=== PATIENT | female | born 2005 | race Caucasian/White ===

== ENCOUNTER 2025-04-19 09:04 | Emergency (ER) | payer OTHER, SELFPAY ==
[2025-04-19] VITALS (14 sets, daily range): BP systolic 117–123; BP diastolic 75–82; PULSE 58–94; RESP 18; TEMP 36.6; O2SAT 97–99; BMI 23.7
--- NOTE | 2025-04-19 09:12 | ED_ITS ---
HPI - General Adult General Date Seen: 04/19/25 Chief complaint: Abdominal Pain Stated complaint: chest and stomache pains Time Seen by Provider: 04/19/25 09:12 History of Present Illness HPI narrative: This is a 19-year-old female who is generally healthy. She has a [employer] student. She presents to the ER for pain in her epigastrium and lower chest. She is generally healthy. No history of asthma, heart disease, PE. She is not on any medications. She has a tall, slender body habitus but no known family history of Marfan's disease, and no family history of sudden cardiac . Because she was tall, she recalls that a couple of years ago her doctor (in her hometown [facility]) did an echocardiogram to check out her aortic valve and she says it was normal. She is not on any regular medications. She has had symptoms of a sore throat and cough for the past few days but no fever. She thinks that her symptoms are just ?a cold. ? She is feeling normal yesterday. Normal appetite. She is currently on her menstrual cycle and is hav ing some mild, lower abdominal cramping which is typical for her. . Yesterday afternoon she was having relax afternoon with her friends and roommate. They were watching a movie. She was not eating but she had had lunch a few hours prior to onset. During the movie she started having feeling of some pressure in her epigastrium that then radiated up into her central chest. It started mild and crescendoed and got worse. It did not radiate through to her back. She can not really describe it. She thought she might be having heartburn, but did not really have burning. She was mildly nauseous. No palpitations. No heart racing. She called her family and her mother had her check her pulse, which is regular. She was not short of breath. No pleuritic component to the pain. She did start to feel anxious because of the pain but does not really think it was anxiety or panic that caused the pain. That episode resolved after 10 or 15 minutes. She had a 2nd episode later on yesterday evening, a few hours after dinner. It again started in the epigastrium and radiated up into her chest. It came and went similarly to her 1st episode she did have a 2 cider alcoholic beverages last night but they occurred after her 2nd episode. She was able to sleep well last night. This morning, when she woke up she had another episode of pain located in her epigastrium and up into her lower chest. This morning's episode was more intense. It was similar in onset, location, character, and symptoms to yesterday but was more intense. This morning's episode has now resolved and she arrives here in the ER she is symptom free. In discussing her alcohol consumption she does say she had had 2 side or beverages last night but not drink every day. She has not had any alcohol in the past couple of weeks since she arrived back on campus. She was drinking occasionally over the summer. She did not have any previous episodes of pain recently or over the summer. Related Data Home Medications ?Medication ?Instructions ?Recorded ?Confirmed No Known Home Medications 04/19/2504/01 Allergies Allergy/AdvReac Type Severity Reaction Status Date / Time No Known Drug Allergies Allergy Verified 04/19/25 09:13 [facility] Social History Smoking Status: Never smoker How often do you have a drink containing alcohol: never How often do you have six or more drinks on one occasion: Never AUDIT-C Alcohol total score: 0 Non-prescribed substance use: denies use service: No Exam Narrative: Exam Narrative: Constitutional: Appears well-developed and well-nourished. Alert. Conversant. Non toxic. Polite. HENT: Head: Atraumatic. Nose: Mild clear rhinorrhea. Occasional sniffling Mouth/Throat: Oral mucosa is clear and moist. no trismus. Pharynx normal. Tonsils symmetric. No tonsillar enlargement, erythema, or exudate. Eyes: Conjunctivae normal. EOM normal. Pupils equal, round, and reactive to light. No scleral icterus. Neck: Normal range of motion. Neck supple. No tracheal deviation present. No JVD Cardiovascular: Normal rate, regular rhythm. No gallop. No friction rub. No murmur heard. Symmetric radial and PT artery pulses Pulmonary/Chest: Effort normal. No stridor. No respiratory distress. No wheezes. No rales. No rhonchi . No tenderness. Abdominal: Soft. Bowel sounds normal. No distension. No mass. Mild epigastric tenderness. No rebound. No guarding. Musculoskeletal: RUE: Normal range of motion. No tenderness. No deformity LUE: Normal range of motion. No tenderness. No deformity RLE: Normal range of motion. No edema. No tenderness. No deformity LLE: Normal range of motion. No edema. No tenderness. No deformity Neurological: Alert and oriented to person, place, and time. Normal strength. CN II-VII intact. No sensory deficit. GCS eye subscore is 4. GCS verbal subscore is 5. GCS motor subscore is 6. Normal coordination Skin: Skin is warm and dry. No rash noted. No pallor. Normal capillary refill. Psychiatric: Normal mood. Normal affect. Const: Vital Signs, click to edit/add: Vital Signs - 24 hr 04/19/25 09:08 04/19/25 09:14 04/19/25 13:27 Temperature 97.8 F Pulse Rate 71 Pulse Rate [Right Pulse Oximeter] 94 Respiratory Rate 18 Blood Pressure 122/82 Blood Pressure [Ri ght Upper Arm] 123/76 Pulse Oximetry 98 99 Oxygen Delivery Me thod Room Air 04/19/25 13:28 04/19/25 13:30 04/19/25 13:45 Temperature Pulse Rate 67 63 60 Pulse Rate [Right Pulse Oximeter] Respiratory Rate Blood Pressure Blood Pressure [Ri ght Upper Arm] Pulse Oximetry 98 98 97 Oxygen Delivery Me thod 04/19/25 14:00 04/19/25 14:01 04/19/25 14:15 Temperature Pulse Rate 60 67 58 L Pulse Rate [Right Pulse Oximeter] Respiratory Rate Blood Pressure 122/75 Blood Pressure [Ri ght Upper Arm] Pulse Oximetry 99 99 99 Oxygen Delivery Me thod 04/19/25 14:30 04/19/25 14:45 04/19/25 15:01 Temperature Pulse Rate 70 61 64 Pulse Rate [Right Pulse Oximeter] Respiratory Rate Blood Pressure 117/75 Blood Pressure [Ri ght Upper Arm] Pulse Oximetry 98 99 97 Oxygen Delivery Me thod 04/19/25 15:02 04/19/25 15:15 Temperature Pulse Rate 61 70 Pulse Rate [Right Pulse Oximeter] Respiratory Rate Blood Pressure Blood Pressure [Ri ght Upper Arm] Pulse Oximetry 99 97 Oxygen Delivery Me thod Course Vital Signs Vital signs: Initial Vital Signs Pulse Rate 94 04/19/25 09:08 Pulse Rhythm Regular 04/19/25 09:08 Pulse Strength 3+ Normal 09/20/25 09:08 Respiratory Rate 18 04/19/25 09:08 Blood Pressure 123/76 04/19/25 09:08 Blood Pressure Mean 91 04/19/25 09:08 Blood Pressure Position Sitting 04/19/25 09:08 Pulse Oximetry 98 04/19/25 09:08 Oxygen Delivery Method Room Air 04/19/25 09:08 Vital Signs Pulse Rate 94 04/19/25 09:08 Respiratory Rate 18 04/19/25 09:08 Blood Pressure 123/76 04/19/25 09:08 Pulse Oximetry 98 04/19/25 09:08 Oxygen Delivery Method Room Air 04/19/25 09:08 Temperature 97.8 F 04/19/25 09:14 Pulse Rate 70 04/19/25 15:15 Respiratory Rate 18 04/19/25 09:08 Blood Pressure 117/75 04/19/25 15:01 Pulse Oximetry 97 04/19/25 15:15 Oxygen Delivery Method Room Air 04/19/25 09:08 Medical Decision Making MDM Narrative Medical decision making narrative: This patient presents to the ER today for evaluation of upper epigastric and lower chest pain, occurring in several episodes beginning yesterday afternoon. Differential was broad. No evidence of palpitations, syncope or other cardiac dysrhythmia. We considered possible ACS, however workup with EKG and troponin is negative. HEART score is 0. Given time since onset of symptoms, I do not think the patient needs to be admitted for further sets of enzymes. EKG shows no evidence for pericarditis. Clinical presentation not suggestive of myocarditis. Chest x-ray shows no evidence for pneumonia, pneumothorax, pulmonary edema, pleural effusion, rib fracture, cardiomegaly. Mediastinum is normal on the x-ray. The patient has no ripping or tearing pain through to the back and has symmetric pulses on exam, no other acute neuro findings so I doubt aortic dissection. D-dimer is normal. She is low risk by aortic dissection wrists or. Risk of radiation and contrast exposure would outweigh the benefit of CT angiogram. We considered PE for this patient. She is overall low risk. Screening D-dimer is normal. No wheezing or bronchospasm to suggest COPD/asthma. No signs of chest wall cellulitis, shingles, injury. Consider GI causes of epigastric/lower chest pain. Consider gastritis or peptic ulcer disease. With the patient's epigastric tenderness we did check labs. LFTs were mildly abnormal and subsequently lipase came back markedly elevated at almost 17,000. It looks like she has acute pancreatitis. Gallbladder ultrasound obtained shows no evidence for gallstones and a normal common bile duct diameter. I reassessed the patient's alcohol consumption and she in her room a confirm that she did have 2 beverages last night (after her pains and already occurred) but has not had any other alcohol over the past several weeks. Blood sugar is normal. She does not have any acute kidney injury. Anion gap is normal. White count is mildly elevated 11.1 which is probably due to systemic inflammatory reaction from her pancreatitis. Cause of the pancreatitis unclear. She denies any habitual alcohol use but did have 2 alcoholic beverages last night (actually after her pain already started). Gallbladder ultrasound is negative for any gallstones, dilatation of the pancreatic ducts. CT scan of her abdomen pelvis shows no clear anatomic abnormality of the pancreas such as a tumor or pseudocyst. Interestingly the CT scan does not show radiographic findings of acute pancreatitis. However labs are highly suggestive. Triglyceride level is normal. Discussed with our hospitalist, Dr. Dominguez. Since the patient is doing well and having almost no pain and no nausea vomiting he feels that she does not require hospitalization. He would recommend discharge home with outpatient follow-up. I did reach out to speak with GI. I was able to get it consult over the phone with Dr. Julio who is covering call for [facility]. Discussed the patient's presenting symptoms and findings of pancreatitis without a clear cause. He would recommend that supportive care during the initial phase is indicated and after that she would need follow-up with the pancreas team through . He would recommend that when the patient is ready to go home from the hospital that she call the [facility] may number and ask for a follow-up visit with Dr. Saucedo If the patient is not able to get in with [facility] for close recheck would recommend that she follow up with [facility] or failing that, with [facility] for recheck by Monday or Monday at the latest. With reasonable clinical confidence, I think the patient is safe for outpatient follow up. Discussed return precautions. Questions answered. Patient and father voiced comfort with the plan. Lab Data Labs: Lab Results 04/19/25 04/19/25 Range/Units 09:45 14:16 WBC 11.11 H (4.50-11.00) K/uL RBC 4.61 (4.00-5.20) m/uL Hgb 12.8 (12.0-16.0) gm/dL Hct 38.8 (33.0-51.0) % MCV 84 (80-100) fL MCH 28 (26-34) pg MCHC 33 (32-36) gm/dL RDW Coeff of Marilia 11.8 (11.5-15.5) % Plt Count 283 (140-440) K/uL Neut % (Auto) 83.0 H (42.0-72.0) % Lymph % (Auto) 9.9 L (20-44) % Hendricks % (Auto) 6.4 (0.0-11.0) % Eos % (Auto) 0.3 (0.0-7.0) % Baso % (Auto) 0.3 (0.0-3.0) % Neut # (Auto) 9.20 H (1.7-7.0) K/uL Lymph # (Auto) 1.10 (0.90-2.90) K/uL Hendricks # (Auto) 0.70 (0.00-0.90) K/UL Eos # (Auto) 0.00 (0.00-0.50) K/uL Baso # (Auto) 0.00 (0.00-0.30) K/uL Abs Immat Gran (auto) 0.00 (0.00-0.30) K/uL Imm/Tot Granulo (auto) 0.1 % D-Dimer Quant (PE/DVT) 0.37 (0.00-0.50) ug/ml Sodium 137 (135-149) mmol/L Potassium 3.5 L (3.6-5.1) mmol/L Chloride 103 (96-114) mmol/L Carbon Dioxide 26 (20-32) mmol/L Anion Gap 8 (7-15) mEq/L BUN 6 (5-24) mg/dL Creatinine 0.5 (0.5-1.5) mg/dL Estimated Creat Clear 207.12 Estimated GFR 138 ml/min Glucose 103 (60-115) mg/dL Calcium 8.8 (8.4-10.6) mg/dL Total Bilirubin 0.6 (0.1-1.5) mg/dL AST 144 H (12-35) U/L ALT 69 H (4-35) U/L Alkaline Phosphatase 84 (40-150) U/L Troponin I < 0.01 (0.01-0.04) ng/mL Total Protein 6.7 (6.0-8.3) g/dL Albumin 4.1 (3.3-5.0) g/dL Triglycerides 51 (40-149) mg/dL Lipase 70108 H (23-300) U/L HCG, Qual Negative (Negative) Imaging Data Chest x-ray: Attestation: I have reviewed the pertinent imaging results. My impression: No acute infiltrate. Normal cardiac silhouette. No pneumothorax. CT scan - abdomen: Attestation: I have reviewed the pertinent imaging results. Radiologist's impression: IMPRESSION: No imaging findings of acute pancreatitis. Pancreatitis may nevertheless be present if the patient`s symptoms are in keeping with acute pancreatitis and serum amylase/lipase is greater than 3 times upper limit of normal. Consider follow-up imaging (e.g. 1 week) if the patient`s clinical condition fails to improve or deteriorates. Pancreatic necrosis can be underestimated if imaging is performed within 3-5 days of symptom onset and complications related to acute pancreatitis typically develop one-week or later. ECG Data Attestation: I personally reviewed and interpreted this ECG as follows: Interpretation: Normal sinus rhythm Rate 80 CT interval 150. No delta waves. Normal QRS axis. No pathologic Q-waves. No ST segment elevation or depression. Nonspecific T-wave inversions in lead V1, V3. T-wave flattening in V2. QT 394, QTC 454 Discharge Plan Discharge Clinical Impression: Pancreatitis Patient Disposition: Home, Self-Care Condition: Stable Instructions: Pancreatitis (ED) Additional Instructions: As we discussed, please return to the ER right away if you have any worsening symptoms such as worsening abdominal pain or chest pain, nausea vomiting, fever, lightheadedness, or weakness, or if you have any other problems. Avoid alcohol consumption. It is okay to eat a regular diet. Start eating with foods that are low in fat. As you get better EKG return to your full normal diet. It is very important for you to have a checkup with follow-up lab testing by Monday or Monday. I have made contact with [facility], Dr. Julio. He would like to have you follow-up in the [facility]. Call [phone] on Monday morning to arrange an ER follow-up visit. If possible he wants you to get an appointment with the pancreas team, Dr. Saucedo. If you are unable to get into [facility] for a recheck on Monday or Monday, please call the [facility] arrange an ER follow-up checkup here in [place]. If you are not able to get into either of these clinics, return to the ER on Monday for re-evaluation. Prescriptions: No Action No Known Home Medications Follow Up/Referrals: Provider,Not a Local [Primary Care Provider, Family Practice] Stand Alone Forms: [employer] Info Instructions
--- NOTE | 2025-04-19 09:41 | CRLHL7_ITS ---
For Patients: As a result of the Century Cures Act, medical imaging exams and procedure reports are released immediately into your electronic medical record. You may view this report before your referring provider. If you have questions, please contact your health care provider. INDICATION: Chest pain. TECHNIQUE: Chest 2 views. COMPARISON: None. FINDINGS/ IMPRESSION: No focal consolidation, effusion or pneumothorax. Cardiac size is within normal limit without pulmonary edema. No acute osseous abnormality. Dictated by Luis E Holden MD @ 04/19/2025 10:30:22 AM (Electronically Signed)
[2025-04-19 09:59] LABS: Hematocrit* 38.8 % (33.0-51.0); Hemoglobin* 12.8 gm/dL (12.0-16.0); Immature Granulocytes Abs Auto 0.00 K/uL (0.00-0.30); Immature Granulocytes Pct Auto 0.1 %; Lymphocytes Absolute Auto 1.10 K/uL (0.90-2.90); Mean Corpuscular HGB Conc 33 gm/dL (32-36); Mean Corpuscular Hemoglobin 28 pg (26-34); Mean Corpuscular Volume 84 fL (80-100); RDW Coefficient of Variation % 11.8 % (11.5-15.5); Red Blood Count* 4.61 m/uL (4.00-5.20); Slide Review Reflex No; White Blood Count* 11.11 K/uL (4.50-11.00)
--- OUTSIDE RECORDS SUMMARY | 2025-04-19 10:06 | XMS_ITS | Clinical Summary ---
Author Organization [facility] Address [address] [address] Phone Care Team Providers Care Sap Portal Consultant Name Role Phone Marcin Colby MD Primary Care Provider [phone] Allergies No known active allergies Medications clindamycin (Clindagel) 1 % gel Apply topically two times a day. 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 Immunizations Immunization Administration Dates Next Due COVID-19 MRNA Vaccine (Pfize r Bivalent TRI-SUCR) Salcedo 12+ YRS 05/14/2022 COVID-19 MRNA Vaccine (Pfize r JUSTIN-SUCR) Salcedo 12+ Yrs Seasonal 07/29/2024,06/23/2023 COVID-19 Vaccine: Pfizer Dos e 1 (Purple- 12+ Yrs) [facility] 10/29/2020 COVID-19 Vaccine: Pfizer Dos e 2 (Purple- 12+ Yrs) [facility] 11/19/2020 COVID-19 mRNA Vaccine (Pfize r-Purple 12+ Yrs) 08/06/2021 DTaP <7 years 09/27/2010,04/18/2006 [id number] (Pediarix) 04/07/2005,12/30,2004,10/2903/21/2005 Hepatitis A, Ped/Adolescent 2 dose 03/09/2018, Hib PRP OMP (PedvaxHib) 12/29/2005,01/18,2004,10/2903/21/2005 Human Papilloma Virus 9 04/08/2022,03/09/2018 IPV 06/09/2011 Influenza (6+ Months) Quad NPF Vial 05/29/2015 Influenza Live Intranasal Qu ad (Flumist) 07/30/2008 Influenza Quad Preservative Free 023,05/14/2022,05/15/2021,08/01,06/11/2019 Influenza Quad Split 06/11/2019,06/14/20 18,06/14/2016,05/02 Influenza Trivalent Live Int ranasal (Flumist) 07/30/2008 Influenza Trivalent Preservative Free 07/29/2024 ,06/12/2014 Influenza Trivalent With Preservative 06/13/2017 MMR 01/04/2010,09/22/2005 Meningococcal MCV4 (Menveo) 2 Vials 04/08/2022 Pneumococcal Conjugate, (Prevnar)7-valent 04/18/2006,04/07/2005,01/18/2005,10/30,2004 Tdap (7 years and older) 03/21/2016 Varicella (Varivax) 01/04/2010,12/29/2005 meningococcal MCV4P (Menactra) 03/21/2016 Social History Tobacco Use Types Packs/Day Years Used Date Smoking Tobacco: Never Passive Smoke Exposure: Never Smokeless Tobacco: Never Tobacco Cessation:Counseling Given: Not Answered Alcohol Use Standard Drinks/Week Comments Not Asked 0 (1 standard drink = 0.6 oz pur e alcohol) Overall Financial Resource Strain (CARDIA) Answe r Date Recorded How hard is it for you to pa y for the very basics like food, housing, medical care, and heating? Not hard at all 03/12/2020 PHQ-2 Answer Date Recorded PHQ-2 Total 0 03/12/2020 Hunger Vital Sign Answer Date Recorded Within the past 12 months, y ou worried that your food would run out before you got the money to buy more. Never true 03/12/20 20 Within the past 12 months, t he food you bought just didn't last and you didn't have money to get more. Never true 03/12/2020 PRAPARE - Transportation Answer Date Re corded In the past 12 months, has l ack of transportation kept you from medical appointments or from getting medications? No 02/28 In the past 12 months, has l ack of transportation kept you from meetings, work, or from getting things needed for daily living? No 03/12/2020 Comments No Sex and Gender Information Value Date Recorded Sex Assigned at Female 01/07/2022 3:29 PM CDT Legal Sex Female 12:12 AM [employer] AGENT Gender Identity Female 01/07/2022 3:29 PM CDT Sexual Orientation Not on file History Length Weight Head Circum Date/Time Gestation Age D/C Weight APGARs Delivery Method Feeding 21 (53.3 cm) 9 lb (4.082 kg) 2004 40 wks 8 lb 9 oz Not Asked Obstetrics History Last Filed Vital Signs Vital Sign Reading Time Taken Comments Blood Pressure 102/68 01/11/2023 8:38 AM CDT Pulse 90 01/11/2023 8:38 AM CDT Temperature 36.3 C (97.3 F) 01/11/2023 8:38 AM CDT Respiratory Rate 10 01/11/2023 8:38 AM CDT Oxygen Saturation 99% 01/11/2023 8:38 AM CDT Inhaled Oxygen Concentration - - Weight 75.2 kg (165 lb 12.6 oz) 01/11/2023 8:38 AM CDT Height 180.3 cm (5' 11) 01/11/2023 8:38 AM CDT Body Mass Index 23.12 01/11/2023 8:38 AM CDT Plan of Treatment Health Maintenance Due Date Last Done Comments Chlamydia Screening 2020 Meningococcal B Vaccine (Standing Order) (1 of 2 - Standard) 2020 ADULT COMPLETE PHYSICAL AGE 19-21 YRS 2023 Influenza Vaccine Seasonal (Standing Order) (#1) 2025 07/29/2024, 06/23/2023, 05/14/2022, Additional history exists TETANUS (Standing Order) 03/21/2026 016, 09/27/2010, 04/18/2006, Additional history exists Hepatitis B Vaccine (Standing Order) Completed 04/07/2005, 01/18/2005, 2004, Additional history exists Pneumococcal/PCV20 Vaccine: Pediatrics (2-5 yrs) and At-Risk Patients (6-49 yrs) (Standing Order) Aged Out 04/18/2006, 04/07/2005, 01/18/2005, Additional history exists No longer eligible based on patient's age to complete this topic PERTUSSIS (Standing Order) Completed 03/21, 09/27/2010, 04/18/2006, Additional history exists HPV Vaccine (Standing Order) Completed 04/08/2022, 03/09/2018 Insurance [employer] [facility] [place] [address] [facility] * Guarantor: COVID-19 IMMUNIZATION Account Type Relation to Patient Date of Phone Billing Address Company Other [address] [place] [address] * Guarantor: [employer] Account Type Relation to Patient Date of Phone Billing Address Company Other [address] [place] [id number] Advance Directives For more information, please contact: [phone] * No Code Status (Latest Code Status on File) Date Activated Date Inactivated Comments 2004 11:42 AM 2004 11:42 AM Care Teams Sap Portal Consultant Relationship Specialty Start Date End Date Marcin Colby MD [address] [place] [address] [place] [address] PCP - General Family Medicine 01/04/10
[2025-04-19 10:10] LABS: Albumin* 4.1 g/dL (3.3-5.0); Chloride* 103 mmol/L (96-114); Potassium* 3.5 mmol/L (3.6-5.1); Sodium* 137 mmol/L (135-149)
[2025-04-19 10:13] LABS: Alanine Aminotransferase* 69 U/L (4-35); Alkaline Phosphatase* 84 U/L (40-150); Anion Gap 8 mEq/L (7-15); Aspartate Amino Transferase* 144 U/L (12-35); Bilirubin Total* 0.6 mg/dL (0.1-1.5); Blood Urea Nitrogen* 6 mg/dL (5-24); Calcium* 8.8 mg/dL (8.4-10.6); Carbon Dioxide* 26 mmol/L (20-32); Creatinine* 0.5 mg/dL (0.5-1.5); Est. Creatinine Clearance* 207.12; Estimated Glomerular Filt Rate 138 ml/min; Glucose* 103 mg/dL (60-115); Total Protein* 6.7 g/dL (6.0-8.3)
[2025-04-19 10:14] LABS: D Dimer Quantitative* 0.37 ug/ml (0.00-0.50)
[2025-04-19 10:15] LABS: HCG Qualitative Serum* Negative (Negative)
--- NOTE | 2025-04-19 10:26 | CRLHL7_ITS ---
For Patients: As a result of the Century Cures Act, medical imaging exams and procedure reports are released immediately into your electronic medical record. You may view this report before your referring provider. If you have questions, please contact your health care provider. INDICATION: EPIGASTRIC AND LOW CHEST PAIN, ELEVATED LFTS. (Sic) COMPARISON: None available. TECHNIQUE: Limited sonographic examination of the gallbladder and CBD. FINDINGS: Gallbladder: Nondistended. Free of stones or significant sludge. Normal wall thickness. Negative sonographic Silva sign. CBD: 5mm Peritoneal Cavity: No significant ascites. Additional Findings: None. IMPRESSION: No findings to explain the clinical history. Dictated by Jose Enrique Liao MD @ 04/19/2025 12:09:09 PM (Electronically Signed)
--- NOTE | 2025-04-19 12:28 | CRLHL7_ITS ---
For Patients: As a result of the 21st Century Cures Act, medical imaging exams and procedure reports are released immediately into your electronic medical record. You may view this report before your referring provider. If you have questions, please contact your health care provider. INDICATION: Epigastric pain, elevated lipase. (Sic) COMPARISON: None available. TECHNIQUE: CT of the abdomen and pelvis with 85 cc of Isovue 370 intravenous contrast. Please note that all CT scans at this facility use dose modulation, iterative reconstruction, and/or weight-based dosing when appropriate to reduce radiation dose to as low as reasonably achievable. FINDINGS: ABDOMEN Liver: Normal contour and attenuation. No significant focal lesion. No intrahepatic biliary ductal dilatation. Patent portal veins. Patent hepatic veins. Gallbladder: Normal size. No pericholecystic inflammatory changes. Normal common duct caliber. Pancreas: Normal contour and attenuation. No peripancreatic inflammatory changes. No significant focal lesion. Normal main duct caliber. Spleen: Not enlarged. No significant focal lesion. Patent splenic artery and vein. Adrenal Glands: Symmetrical adrenal glands. No significant focal lesion. Kidneys: Normal bilateral renal attenuation. No significant focal lesion. No nephrolith. No dilatation of the intrarenal collecting systems. No ureteral stone. Nondilated ureters. Patent renal arteries and veins. Gastrointestinal tract: Normal caliber, attenuation and wall thickness of the gastrointestinal tract. No inflammatory changes. Normal small bowel mesentery. Normal appendix. Vascular: Abdominal aorta and its major proximal branches including the celiac, superior mesenteric, inferior mesenteric, renal, and bilateral common iliac arteries are patent. Patent superior mesenteric vein. Peritoneal Cavity/Retroperitoneum: No ascites. No adenopathy. PELVIS No bladder lesion is identified. No significant incidental findings related to the uterus or uterine adnexa. Small volume low-attenuation pelvic free fluid is within physiologic limits of normal.. No adenopathy. SKELETON AND BODY WALL No acute or significant incidental findings. LOWER THORAX Partially included lower thoracic wall, lungs, pleural spaces and mediastinum are without significant incidental findings. IMPRESSION: No imaging findings of acute pancreatitis. Pancreatitis may nevertheless be present if the patient`s symptoms are in keeping with acute pancreatitis and serum amylase/lipase is greater than 3 times upper limit of normal. Consider follow-up imaging (e.g. 1 week) if the patient`s clinical condition fails to improve or deteriorates. Pancreatic necrosis can be underestimated if imaging is performed within 3-5 days of symptom onset and complications related to acute pancreatitis typically develop one-week or later. Please note that all CT scans at this facility use dose modulation, iterative reconstruction, and/or weight-based dosing when appropriate to reduce radiation dose to as low as reasonably achievable. Dictated by Jose Enrique Liao MD @ 04/19/2025 2:03:22 PM (Electronically Signed)
[2025-04-19 14:36] LABS: Triglycerides* 51 mg/dL (40-149)
== END 2025-04-19 16:13 | disposition home or self-care (01) ==
PROVIDERS: Emergency Provider Emergency Medicine
DX: K85.90 Acute pancreatitis without necrosis or infection, unspecified (principal); R07.89 Other chest pain
CPT/HCPCS: 36415; 71046; 74177; 76705; 80053; 83690; 84478; 84484; 84703; 85025; 85379; 93005; 99284; 99285; Q9967